=== PATIENT | female | born 1995 | race Two or more races ===

== ENCOUNTER 2025-02-09 17:02 | Emergency (ER) | payer OTHER ==
[~2025-02-09] VITALS: Ht 157.5 cm; Wt 77.0 kg
[2025-02-09 17:08] VITALS: TEMP 98.1
[2025-02-09 17:25] LABS: COVID AG,FIA SOURCE NASAL SWAB
[2025-02-09 17:42] LABS: RAPID GROUP A STREP NEGATIVE (NEGATIVE)
[2025-02-09 17:45] VITALS: BP 135/85; PULSE 98; RESP 18; O2SAT 99
[2025-02-09 17:49] LABS: INFLUENZA TYPE A NEGATIVE FOR TYPE A (NEGATIVE); INFLUENZA TYPE B NEGATIVE FOR TYPE B (NEGATIVE)
[2025-02-09 18:17] LABS: SARS-COV2 (COVID) ANTIGEN,FIA Negative (Negative)
[2025-02-09 18:45] LABS: HCG,QUAL URINE NEGATIVE (NEGATIVE)
[2025-02-09 18:48] LABS: APPEARANCE,URINE CLEAR (CLEAR); GLUCOSE, URINE (UA) NEGATIVE (NEGATIVE); LEUKOCYTE ESTERASE ,URINE NEGATIVE (NEGATIVE); NITRATE,URINE NEGATIVE (NEGATIVE); OCCULT BLOOD,URINE TRACE (NEGATIVE); SPECIFIC GRAVITIY, URINE 1.004 (1.003-1.030)
[2025-02-09] MEDS: BENZONATATE 100 MG CAPSULE PO ONE (18:50)
[2025-02-09 19:18] LABS: SQUAMOUS EPITHELIAL CELL,UR Few /LPF (None Seen)
== END 2025-02-09 19:30 | disposition home or self-care (01) ==
LOC: EMS 17:02
DX: J06.9 Acute upper respiratory infection, unspecified (principal); R05.9 Cough, unspecified; B97.89 Other viral agents as the cause of diseases classified elsewhere; Z20.822 Contact with and (suspected) exposure to COVID-19
CPT/HCPCS: 71045; 81001; 82962; 84703; 87430; 87804; 99284; J8540